=== PATIENT | male | born 1960 | race Caucasian/White ===

== ENCOUNTER 2016-10-06 15:58 | Emergency (ER) | payer BC ==
[2016-10-06 16:12] VITALS: BP 155/87
--- NOTE | 2016-10-06 16:38 | UC ---
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 4 years ago had inguinal hernia surgery- Dr Bassett- appt for 10/06/16 - History of Current Complaint Chief Complaint: UCAbdominalPain Stated Complaint: LOWER RIGHT ABD PAIN Time Seen by Provider: 10/06/16 16:25 Hx Obtained From: Patient - Allergies/Home Medications Allergies/Adverse Reactions: Allergies Allergy/AdvReac Type Severity Reaction Status Date / Time Penicillins Allergy Unknown from when Verified 10/06/16 16:02 he was a child Home Medications: Home Medications Pregabalin CAP(*) [Lyrica CAP(*)] 100 mg PO TID 10/06/16 [History Confirmed ] cloNIDine TAB* [Catapres 0.1 MG TAB*] 0.1 mg PO TID PRN 10/06/16 [History Confirmed 10/06/16] PMH/Surg Hx/FS Hx/Imm Hx Previously Healthy: Yes Endocrine History Of: Denies: Diabetes Cardiovascular History Of: Denies: Cardiac Disorders, Hypertension, Pacemaker/ICD Respiratory History Of: Denies: Asthma - Surgical History Surgical History: Yes Surgery Procedure, Year, and Place: BILAT INGUINAL HERNIA REPAIR, UMBILICAL HERNIA REPAIR- JUN 2013 - Family History Known Family History: Negative: Cardiac Disease, Hypertension, Diabetes - Social History Occupation: Employed Full-time Lives: With Family Alcohol Use: None Substance Use Type: None Smoking Status (MU): Heavy Every Day Tobacco Smoker Type: Cigarettes Amount Used/How Often: 1 PPD X 40 YEARS Household Exposure Type: Cigarettes Review of Systems Constitutional: Negative Skin: Negative Eyes: Negative ENT: Negative Respiratory: Negative Cardiovascular: Negative Gastrointestinal: Abdominal Pain Genitourinary: Negative Motor: Negative Neurovascular: Negative Musculoskeletal: Negative Neurological: Negative Psychological: Negative All Other Systems Reviewed And Are Negative: Yes Physical Exam Triage Information Reviewed: Yes Appearance: Well-Nourished, Ill-Appearing, Pain Distress Vital Signs: Initial Vital Signs Temp 99.5 F 10/06/16 16:04 Pulse 79 10/06/16 16:04 Resp 16 10/06/16 16:04 BP 155/87 10/06/16 16:04 Pulse Ox 99 10/06/16 16:04 Vital Signs Reviewed: Yes Eyes: Positive: Conjunctiva Clear ENT: Positive: Pharynx normal, TMs normal Neck: Positive: No Lymphadenopathy Respiratory: Positive: Lungs clear, Normal breath sounds, No respiratory distress, No accessory muscle use Cardiovascular: Positive: RRR, No Murmur, Pulses Normal Abdomen Description: Positive: Nontender, No Organomegaly, Soft. Negative: CVA Tenderness (R), CVA Tenderness (L), Distended, Guarding Musculoskeletal: Positive: No Edema Neurological: Positive: Alert Psychological Exam: Normal Skin Exam: Normal - normal penis - no lesions or urethral discharge right scrotal tenderness- no scrotal mass- swollen epididymis no hernia identified Abd Pain Male Course/Dx - Course Course Of Treatment: exam completed. d/t acute severe pain in right testicle and RLQ recommned further evaluation an treatment in the emergency room. pt frustrated by the lack of ulrasound capability at urgent care. refuses to go to the ED for further evaluation and treatment of scrotal pain. states that he will contact PCP and Dr Bassett for a schedules US - Differential Dx/Clinical Impression Provider Diagnoses: right testicular pain, Right lower abdominal pain - Physician Notification/Consults Discussed Patient Care With: Dr Smallwood Time Discussed With Above Provider: 17:11 Discharge - Discharge Plan Condition: Stable Disposition: AGAINST MEDICAL ADVICE Prescriptions: Tramadol-Acetaminophen [Ultracet] 1 tab PO Q4HR PRN #12 tab MDD 6 PRN Reason: Pain Referrals: Cesario Burt MD [Medical Doctor] -
== END 2016-10-06 17:31 | disposition left against medical advice (07) ==
LOC: UCCORT 15:58
DX: R10.31 Right lower quadrant pain (principal); N50.811 Right testicular pain; F17.210 Nicotine dependence, cigarettes, uncomplicated
CPT/HCPCS: 81003; 99212; G0463